=== PATIENT | male | born 1975 ===

== ENCOUNTER 2017-12-02 13:52 | Emergency (ER) | payer BC ==
[2017-12-02 14:37] VITALS: RESP 20; O2SAT 98
--- NOTE | 2017-12-02 15:15 | C.PDOC ---
History Of Present Illness 42 year old male presents to the ED requesting Penicillin shot secondary to his recent syphilis diagnosis. Patient reports 2 weeks ago he developed some bumps in his groin area in addition to a sore on his penis. Patient saw who did labs and treated him with doxycycline for 2 weeks. Patient reports he finished his course of antibiotics and went to see Dr. Dumont today who informed him his repeat labs results were positive for FTA-ABS and instructed him to come to the ED. Patient notes that bumps and lesion both improved. Patient is asymptomatic while in the ED. Patient denies fever, weight loss abdominal pain, penile d/c, joint pain, weakness, rash or headache. Time Seen by Provider: 12/02/17 15:14 Chief Complaint (Nursing): Medical Clearance History Per: Patient History/Exam Limitations: no limitations Onset/Duration Of Symptoms: Days Current Symptoms Are (Timing): Still Present Reports Recently: Treated By A Physician ( ) Recent travel outside of the [place]: No Additional History Per: Patient Past Medical History Reviewed: Historical Data, Nursing Documentation, Vital Signs Vital Signs: Last Vital Signs Temp 98.1 F 12/02/17 16:56 Pulse 77 12/02/17 16:56 Resp 20 12/02/17 16:56 BP 120/77 12/02/17 16:56 Pulse Ox 98 12/02/17 18:06 - Medical History PMH: Diverticulitis, Sexually Transmitted Disease Surgical History: No Surg Hx Family History: States: Unknown Family Hx - Social History Hx Alcohol Use: No Hx Substance Use: Yes - Immunization History Hx Tetanus Toxoid Vaccination: No Hx Influenza Vaccination: No Hx Pneumococcal Vaccination: No Review Of Systems Constitutional: Negative for: Fever, Chills Cardiovascular: Negative for: Chest Pain Respiratory: Negative for: Cough, Shortness of Breath Genitourinary: Negative for: Dysuria, Hematuria Skin: Positive for: Lesions (penis), Other (Bumps on groin). Negative for: Rash Neurological: Negative for: Weakness, Numbness Physical Exam - Physical Exam Appears: Non-toxic, No Acute Distress Skin: Warm, Dry Head: Atraumatic, Normacephalic Eye(s): bilateral: Normal Inspection, EOMI Nose: No Discharge Oral Mucosa: Moist Neck: Normal ROM, Supple Chest: Symmetrical Cardiovascular: Rhythm Regular Respiratory: Normal Breath Sounds, No Rales, No Rhonchi, No Wheezing Gastrointestinal/Abdominal: Soft, No Tenderness, No Guarding, No Rebound Male Genital: No Testicular Tenderness, No Testicular Swelling, Inguinal Swelling (lymphadenopathy), Other (2 cm chancre left side shaft, no discharge or erythema) Extremity: Normal ROM, No Tenderness, No Swelling Neurological/Psych: Oriented x3 Gait: Steady ED Course And Treatment O2 Sat by Pulse Oximetry: 98 (ON RA) Pulse Ox Interpretation: Normal Progress Note: Plan: - Labs. - PCN IM. Case was discussed with Dr. Pearl who requested testing for additional STDS if not done at PMD office, IM dose of PCN as given and outpatint follow up. Case was discussed with Dr. Dumont who noted he performed HIV testing 2 weeks ago with negative results and herpes with positive results. also requests GC chlamydia and Hepatitis testing in ED and he will follow upthe results. Disposition - Disposition Referrals: Juaquin Dumont MD [Staff Provider] - Disposition: HOME/ ROUTINE Disposition Time: 16:26 Condition: STABLE Additional Instructions: Follow up with Dr Dumont regarding labs drawn today and repeat evaluation. Instructions: Syphilis (DC) Forms: miiCard (Bulgarian) - Clinical Impression Clinical Impression: Syphilis - PA / DYNAMITER / Resident Statement /DO has reviewed & agrees with the documentation as recorded. - Scribe Statement The provider has reviewed the documentation as recorded by the Scribe Jonas Ibanez All medical record entries made by the Scribe were at my direction and personally dictated by me. I have reviewed the chart and agree that the record accurately reflects my personal performance of the history, physical exam, medical decision making, and the department course for this patient. I have also personally directed, reviewed, and agree with the discharge instructions and disposition.
[2017-12-02] MEDS ORDERED: Penicillin G Benzathine 2.4 Mill Unit/4 ml Syr IM ONE ×2 (16:13→16:23)
[2017-12-02 16:56] VITALS: BP 120/77; PULSE 77; TEMP 98.1
[2017-12-02 18:17] LABS: HEPATITIS B SURFACE AG Negative (NEGATIVE)
[2017-12-02 18:23] LABS: HEPATITIS A IGM NEGATIVE (NEGATIVE); HEPATITIS B CORE AB NEGATIVE (NEGATIVE)
[2017-12-02 18:35] LABS: HEPATITIS C ANTIBODY NEGATIVE (NEGATIVE)
[2017-12-03 11:13] LABS: RAPID PLASMA REAGIN REACTIVE (NONREACTIVE); RPR TITER 1:16 (NONREACTIVE)
== END 2017-12-02 16:57 | disposition home or self-care (01) ==
LOC: C.ER 13:52
DX: A53.9 Syphilis, unspecified (principal)
CPT/HCPCS: 36415; 80074; 86592; 86706; 86780; 87491; 87591; 96372; 99282; J0561